=== PATIENT | female | born 1970 | race Two or more races ===

== ENCOUNTER 2025-04-26 11:01 | Emergency (ER) | payer OTHER ==
[~2025-04-26] VITALS: Ht 152.4 cm; Wt 53.5 kg
[2025-04-26] MEDS ORDERED: KETOROLAC TROMETHAMINE 30 MG VIAL IU ONE (14:00)
[2025-04-26] MEDS ORDERED: ONDANSETRON HCL 2 MG/ML VIAL IV ONE (14:00)
[2025-04-26] MEDS ORDERED: 0.9 % SODIUM CHLORIDE 1,000 ML IV ONE (14:00)
[2025-04-26] MEDS ORDERED: KETOROLAC TROMETHAMINE 30 MG VIAL ONE (14:34)
[2025-04-26] MEDS ORDERED: ONDANSETRON HCL 2 MG/ML VIAL ONE (14:34)
[2025-04-26 15:25] LABS: BASO % 0.6 % (0.1-1.2); EOS # 0.00 (0.04-0.54); EOS % 0.0 % (0.7-7.0); LYMPH # 0.86 (1.18-3.74); LYMPH % 7.9 % (19.3-53.1); MEAN PLATELET VOLUME 10.00 fl (9.4-12.4); MONO # 0.36 (0.24-0.82); MONO % 3.3 % (4.7-12.5); NEUT # 9.55 (1.56-6.13); NEUT % 87.8 % (34.0-71.1); RED CELL DISTRIBUTION WIDTH 13.5 % (11.6-14.4)
[2025-04-26 15:34] LABS: URINE APPEARANCE Cloudy; URINE BILIRRUBIN Negative (NEGATIVE); URINE BLOOD Large; URINE COLOR Yellow; URINE GLUCOSE Negative (NEGATIVE); URINE KETONE Negative (NEGATIVE); URINE LEUKOCYTE Trace; URINE NITRATE Negative; URINE PROTEIN 30 (NEGATIVE); URINE UROBILINOGEN 0.2 E.U./dl
[2025-04-26 15:38] LABS: URINE BACTERIA 27.5 uL (0.0-1933); URINE EPITHELIAL CELLS 5.6 uL (0.0-38.8); URINE RBC 1219.2 uL (0.0-20.8); URINE WBC 14.9 uL (0.0-23.2)
[2025-04-26 15:56] LABS: BUN CREA RATIO 18.0 (7.0-25.0); CREATININE SERUM 1.03 mg/dL (0.55-1.02); GFR 55.84; GLUCOSE FASTING 135.0 mg/dL (65-100); OSMOLALITY SERUM 289.0 MOSM/KG (275-295)
[2025-04-26 16:02] LABS: URINE CAST 0.58 uL (0.0-1.40)
== END 2025-04-26 18:52 | disposition home or self-care (01) ==
LOC: ER 11:02
PROVIDERS: Emergency Medicine
DX: R10.A2 Flank pain, left side (principal); N13.30 Unspecified hydronephrosis; N20.2 Calculus of kidney with calculus of ureter; K57.30 Diverticulosis of large intestine without perforation or abscess without bleeding